=== PATIENT | female | born 1950 | race Caucasian/White ===

== ENCOUNTER 2019-01-03 07:42 | Outpatient (CLI) | payer MEDICARE, OTHER ==
--- NOTE | 2019-01-03 11:09 | CARDIAC PROCEDURE NOTE ---
DATE OF SERVICE: 01/03/2019 Physician: Opal Stock MD, [facility] INDICATIONS: Chest pain, atypical. PROCEDURE: Exercise treadmill test. CARDIAC RISK FACTORS: Postmenopausal status, strong family history in many family members of cardiovascular disease. PROCEDURE: After signing informed consent, the patient performed exercise on a Julio Cesar protocol treadmill stress test. No imaging was ordered with this test. RESTING HEART RATE: 74. Peak heart rate: 130 (85% predicted maximum heart rate for age). RESTING BLOOD PRESSURE: 117/74. Peak blood pressure 141/80. The patient exercised for 4 minutes and 14 seconds on a Julio Cesar protocol treadmill stress test. She achieved a peak heart rate of 130 (85% PMHR) and 6.1 METS. The patient had no chest pain and no shortness of breath. Normal heart rate and blood pressure response to exercise. RESTING EKG: Normal sinus rhythm, lateral T-wave flattening, and minimal ST depression in lead II only. EKG AT PEAK: No new ischemic EKG changes. SUMMARY: 1. Abnormal resting EKG. 2. Good exercise tolerance and no symptoms of chest pain at an adequate achieved peak heart rate. 3. No new EKG changes; however, the baseline EKG has abnormal ST and T waves. 4. No imaging study was ordered with this test. cc: Liliana Gar PA-C TD: 01/03/2019 10:48 MTDD
== END 2019-01-03 07:43 | disposition home or self-care (01) ==
LOC: DI 07:42
PROVIDERS: ATTEND Physician Assistant
DX: R07.89 Other chest pain (principal); R94.31 Abnormal electrocardiogram [ECG] [EKG]; Z78.0 Asymptomatic menopausal state; Z82.49 Family history of ischemic heart disease and other diseases of the circulatory system
CPT/HCPCS: 93016; 93017; 93018

== ENCOUNTER 2019-05-25 08:14 | Outpatient (CLI) | payer MEDICARE, OTHER ==
--- NOTE | 2019-05-28 09:51 | CT Report ---
Reason: PULMONARY NODULE Procedure Date: 05/25/2019 Accession Number: [id number] / [id number] Procedure: CT - CHEST WO CPT Code: FULL RESULT: EXAM: CT CHEST EXAM DATE: 05/25/2019 08:37 AM. CLINICAL HISTORY: Pulmonary nodule. COMPARISONS: RIBS 2 VIEW RT 04/28/2018 8:30 AM. TECHNIQUE: Routine helical CT imaging was performed through the chest. IV contrast: None. Reconstructions: Coronal and sagittal. In accordance with CT protocol optimization, one or more of the following dose reduction techniques were utilized for this exam: automated exposure control, adjustment of mA and/or KV based on patient size, or use of iterative reconstructive technique. FINDINGS: Lungs/Pleura: Minimal bibasilar scar/atelectasis. No endobronchial obstruction. Right fissural nodule 5 mm, image 24, series 4. Peripheral subpleural right lower lobe nodule 4 mm, image 37, series 4. Subpleural nodular opacity left lower lobe 3 mm, image 33, series 4. No dense consolidation. No pleural effusions. Mediastinum: Visualized thyroid gland is unremarkable. Heart size normal. Trace pericardial effusion. Small hiatal hernia. Thoracic aorta is normal in caliber. Mild thoracic aorta calcified plaque. No enlarged mediastinal or hilar lymph nodes are identified. No axillary or inferior cervical adenopathy. Bones: Mild degenerative changes of the thoracic spine. No acute osseous abnormalities. Visualized Abdomen: Included portions of the liver, spleen, adrenals, pancreas and left kidney are normal. Nonobstructing 2 mm right renal calculus. Status post cholecystectomy. Included portions of the stomach and upper abdominal bowel are unremarkable. Other: None. IMPRESSION: 1. Bilateral lung nodules with the largest right fissural nodule measuring 5 mm. No other definitive nodules are identified. Please see recommendations below as for follow-up. 2. No thoracic adenopathy. 3. Mild thoracic aortic atherosclerosis. 4. Status post cholecystectomy. Recommend follow-up of the described nodule(s) according to the following guidelines: Fleischner Society Recommendations 2017 MacMahon et al. Radiology 2017 Solid Nodules-Low Risk Patients: <6 mm (single or multiple) - No routine follow-up* 6-8 mm (single) -CT at 6-12 months, then consider CT at 18-24 months 6-8mm (multiple) -CT at 3-6 months, then consider at CT 18-24 months >8 mm (single) -Consider CT, PET/CT, or tissue sampling at 3 months >8 mm (multiple) -CT at 3-6 months, then consider CT at 18-24 months Solid Nodules-High Risk Patients: <6 mm (single or multiple) -Optional CT at 12 months* 6-8 mm (single) -CT at 6-12 months, then CT at 18-24 months 6-8mm (multiple) -CT at 3-6 months, then CT at 18-24 months >8 mm (single) -Consider CT, PET/CT, or tissue sampling at 3 months >8 mm (multiple) -CT at 3-6 months, then at 18-24 months *Nodules < 6mm do not require routine follow-up, but suspicious nodule morphology, upper lobe location, or both may warrant 12 month follow-up Subsolid nodules: <6 mm (single, GG or part solid) -No routine follow-up >=6 mm (single GG) -CT at 6-12 months to confirm, then CT q2 years until 5 years >=6 mm (single part solid) -CT at 3-6 months to confirm, if unchanged and solid <6mm, annual CT for 5 years <6 mm (multiple GG or part solid) -CT at 3-6 months. If stable, consider CT at 2 and 4 years >=6 mm (multiple GG or part solid) -CT at 3-6 months. Subsequent management based on most suspicious nodule(s). Consider follow-up at 2 and 4 years for certain suspicious nodules <6mm. If solid component develops or growth, consider resection. RADIA
== END 2019-05-25 08:15 | disposition home or self-care (01) ==
LOC: DI 08:14
PROVIDERS: ATTEND Physician Assistant Medical
DX: R91.8 Other nonspecific abnormal finding of lung field (principal); I70.0 Atherosclerosis of aorta; Z90.49 Acquired absence of other specified parts of digestive tract
CPT/HCPCS: 71250

== ENCOUNTER 2019-06-04 08:41 | Outpatient (CLI) | payer MEDICARE, OTHER ==
--- NOTE | 2019-06-04 13:07 | Ultrasound Report ---
Reason: VERTIGO Procedure Date: 06/04/2019 Accession Number: [id number] / [id number] Procedure: US - Carotid Doppler Complete CPT Code: FULL RESULT: EXAM: BILATERAL CAROTID AND VERTEBRAL ARTERY DUPLEX DOPPLER ULTRASOUND: EXAM DATE: 06/04/2019 10:20 AM CLINICAL HISTORY: Vertigo. COMPARISON: None. TECHNIQUE: Grayscale imaging, color Doppler, and duplex spectral Doppler were used to evaluate the carotid and vertebral arteries bilaterally. Static images were obtained. FINDINGS: No significant plaque is identified in the right or left common or internal carotid arteries. Normal antegrade flow is present in bilateral vertebral arteries. VELOCITIES (cm/sec): Right CCA mid: PSV 91 cm/sec CCA dist: PSV 63 cm/sec ICA prox: PSV 52 cm/sec, EDV 19 cm/sec ICA mid: PSV 76 cm/sec, EDV 37 cm/sec ICA dist: PSV 97 cm/sec, EDV 44 cm/sec ECA: PSV 48 cm/sec Vert: PSV 72 cm/sec ICA/CCA: 1.0 Left CCA mid: PSV 71 cm/sec CCA dist: PSV 72 cm/sec ICA prox: PSV 44 cm/sec, EDV 18 cm/sec ICA mid: PSV 80 cm/sec, EDV 34 cm/sec ICA dist: PSV 83 cm/sec, EDV 34 cm/sec ECA: PSV 40 cm/sec Vert: PSV 39 cm/sec ICA/CCA: 1.1 ICA diameter stenosis: Right: <50% by velocity and <70% by NASCET criteria. Left: <50% by velocity and <70% by NASCET criteria. IMPRESSION: 1. No significant bilateral carotid artery plaquing. 2. In the right carotid artery there are no elevated carotid artery velocities to suggest hemodynamically significant stenosis. 3. In the left carotid artery there are no elevated carotid artery velocities to suggest hemodynamically significant stenosis. 4. Normal antegrade flow is present in bilateral vertebral arteries. General Recommendations: Stenosis =50% ICA - Follow-up ultrasound 6-12 months Stenosis <50% ICA - High Risk Patient with plaque - Follow-up ultrasound 1-2 years Normal Study but High Risk Patient - Follow-up ultrasound 3-5 years Management recommendations and diagnostic criteria are based on current IAC endorsed standards in Carotid Artery Stenosis: Grayscale and Doppler Ultrasound Diagnosis. Validated velocity measurements with angiographic measurements and velocity criteria are extrapolated from diameter data as defined by the Society of Radiologists in Ultrasound Consensus Conference Radiology 2003; 229;340-346. RADIA
== END 2019-06-04 08:42 | disposition home or self-care (01) ==
LOC: DI 08:41
PROVIDERS: ATTEND Physician Assistant Medical
DX: R42 Dizziness and giddiness (principal)
CPT/HCPCS: 93880

== ENCOUNTER 2019-07-24 18:16 | Outpatient (CLI) | payer MEDICARE, OTHER | END 2019-07-24 18:17 | disposition EMS.NT | LOC: EMS 18:16 | PROVIDERS: ATTEND Surgery | DX: R10.9 Unspecified abdominal pain (principal); R11.2 Nausea with vomiting, unspecified ==

== ENCOUNTER 2021-02-11 09:06 | Emergency (ER) | payer MEDICARE, OTHER ==
[2021-02-11] MEDS ORDERED: ASPIRIN CHEW 81 MG TABLET PO STA (09:27)
--- OUTSIDE RECORDS SUMMARY | 2021-02-11 09:28 | EXTERNAL MEDICAL SUMMARY RPT | Continuity of Care Document ---
:1950 Demographics Phone Unavailable Preferred Language Unknown Marital Status Unknown Cheondoism Affiliation Unknown Race Unknown Ethnic Group Unknown Author Organization [facility] Address [address] [id number] Phone Allergies Encounters Medications Problems Results
--- NOTE | 2021-02-11 09:29 | ED Physician Documentation ---
PD HPI CHEST PAIN - Stated complaint Stated Complaint: CHEST PAINS - Chief complaint Chief Complaint: Cardiac - History obtained from History obtained from: Patient - Additional information Additional information: This is a very healthy 70-year-old woman with no hx of coronary disease who presents with constant mild right sided substernal chest pain that started when she woke up this morning at 6 AM. She went for her usual morning walk today which did not make it worse. She denies radiation. It is not worse with deep breathing. There is no associated shortness of breath, nausea, dizziness, s weats, pedal edema, calf pain. No recent travel. She had a negative Julio Cesar only stress test about 2 years ago. Review of Systems Ten Systems: 10 systems reviewed and negative Constitutional: denies: Fever, Chills Cardiac: denies: Palpitations, Pedal edema, Calf pain Respiratory: denies: Dyspnea, Cough, Hemoptysis, Wheezing PD PAST MEDICAL HISTORY - Past Medical History Past Medical History: Yes Cardiovascular: High cholesterol Respiratory: None Neuro: None Endocrine/Autoimmune: None GI: GERD [employer]: None : None HEENT: None Psych: Depression Musculoskeletal: Osteoarthritis, Osteoporosis Derm: None - Past Surgical History Past Surgical History: No General: Cholecystectomy - Present Medications Home Medications: Ambulatory Orders Medication Instructions Recorded Confirmed Amoxicillin 500 mg PO TID 02/11/21 02/11/21 - Allergies Allergies/Adverse Reactions: Allergies Allergy/AdvReac Type Severity Reaction Status Date / Time No Known Drug Allergies Allergy Verified 02/11/21 09:10 - Social History Does the pt smoke?: No Smoking Status: Never smoker Does the pt drink ETOH?: No Does the pt have substance abuse?: No - Immunizations Immunizations are current?: Yes - POLST Patient has POLST: No PD ED PE NORMAL - Vitals Vital signs reviewed: Yes - General General: Alert and oriented X 3, No acute distress - HEENT HEENT: PERRL, EOMI - Neck Neck: Supple, no meningeal sign, No bony TTP - Cardiac Cardiac: RRR, No murmur, Other (Chest pain is reproducible with palpation of the right upper chest wall anteriorly) - Respiratory Respiratory: No respiratory distress, Clear bilaterally - Abdomen Abdomen: Soft, Non tender - Back Back: No CVA TTP, No spinal TTP - Derm Derm: Normal color, Warm and dry - Extremities Extremities: No edema, No calf tenderness / cord - Neuro Neuro: Alert and oriented X 3, Normal speech Results - Vitals Vitals: Vital Signs - 24 hr 02/11/21 02/11/21 09:11 10:59 Temperature 36.8 C Heart Rate 79 70 Respiratory 16 20 Rate Blood Pressure 149/87 H 124/74 O2 Saturation 99 100 Oxygen O2 Source Room air - EKG (time done) 0912 Rate: Rate (enter#) (72) Rhythm: NSR [place]: Normal Intervals: Normal ND QRS: LVH Ischemia: Non specific changes (There is anterior T wave inversion and flat T waves inferiorly. No change from July 2013) Computer interpretation: Agree with computer - Labs Labs: Laboratory Tests 02/11/21 02/11/21 02/11/21 09:39 09:39 09:39 WBC 4.5 L RBC 4.77 Hgb 14.2 Hct 42.4 MCV 88.9 MCH 29.8 MCHC 33.5 RDW 12.1 Plt Count 213 MPV 10.7 Neut # (Auto) 2.4 Lymph # (Auto) 1.2 L [place] # (Auto) 0.5 Eos # (Auto) 0.4 Baso # (Auto) 0.1 Absolute Nucleated RBC 0.00 Nucleated RBC % 0.0 Sodium 138 Potassium 3.5 Chloride 104 Carbon Dioxide 24 Anion Gap 10.0 BUN 16 Creatinine 0.6 Estimated GFR (MDRD) 99 Glucose 126 H Calcium 9.1 Total Bilirubin 0.7 AST 26 ALT 26 Alkaline Phosphatase 53 Troponin I High Sens < 2.3 L Total Protein 7.8 Albumin 4.5 Globulin 3.3 Albumin/Globulin Ratio 1.4 Lipase 31 02/11/21 11:40 WBC RBC Hgb Hct MCV MCH MCHC RDW Plt Count MPV Neut # (Auto) Lymph # (Auto) [place] # (Auto) Eos # (Auto) Baso # (Auto) Absolute Nucleated RBC Nucleated RBC % Sodium Potassium Chloride Carbon Dioxide Anion Gap BUN Creatinine Estimated GFR (MDRD) Glucose Calcium Total Bilirubin AST ALT Alkaline Phosphatase Troponin I High Sens < 2.3 L Total Protein Albumin Globulin Albumin/Globulin Ratio Lipase PD MEDICAL DECISION MAKING - ED course Complexity details: reviewed old records ED course: 70-year-old woman with reproducible chest pain. EKGs unchanged from prior. Serial troponins done in the department and negative. Departure - Departure Disposition: 01 Home, Self Care Clinical Impression: Chest wall pain Condition: Good Record reviewed to determine appropriate education?: Yes Instructions: ED Chest Pain Atypical Unkn Cause Comments: Follow-up with your doctor, next available appointment. Discuss repeat stress testing, return for new or worsening symptoms or if symptoms progress or become worse with exertion.
[2021-02-11 09:45] LABS: BASOPHILS # (AUTO) 0.1 10^3/uL (0.0-0.1); BASOPHILS % (AUTO) 1.1 %; EOSINOPHILS # (AUTO) 0.4 10^3/uL (0.0-0.7); EOSINOPHILS % (AUTO) 8.6 %; HCT - HEMATOCRIT 42.4 % (37.0-47.0); HGB - HEMOGLOBIN 14.2 g/dL (12.0-16.0); LYMPHOCYTES # (AUTO) 1.2 10^3/uL (1.5-3.5); LYMPHOCYTES % (AUTO) 26.9 %; MEAN CORPUSCULAR HEMOGLOBIN 29.8 pg (27.0-31.0); MEAN CORPUSCULAR HGB CONC 33.5 g/dL (32.0-36.0); MEAN CORPUSCULAR VOLUME 88.9 fL (81.0-99.0); MEAN PLATELET VOLUME 10.7 fL (7.9-10.8); MONOCYTES # (AUTO) 0.5 10^3/uL (0.0-1.0); NEUTROPHILS # (AUTO) 2.4 10^3/uL (1.5-6.6); NEUTROPHILS % (AUTO) 52.2 %; PLT - PLATELET COUNT 213 10^3/uL (130-450); RED BLOOD COUNT 4.77 10^6/uL (4.20-5.40); RED CELL DISTRIBUTION WIDTH 12.1 % (12.0-15.0); WHITE BLOOD COUNT 4.5 x10^3/uL (4.8-10.8)
[2021-02-11 10:01] LABS: ALBUMIN 4.5 g/dL (3.2-5.5); ALBUMIN/GLOBULIN RATIO 1.4 (1.0-2.2); BILIRUBIN,TOTAL 0.7 mg/dL (0.2-1.0); CALCIUM 9.1 mg/dL (8.5-10.3); CREATININE 0.6 mg/dL (0.4-1.0); POTASSIUM 3.5 mmol/L (3.5-5.0); TOTAL PROTEIN 7.8 g/dL (6.7-8.2)
--- NOTE | 2021-02-11 10:09 | XRAY Report ---
PROCEDURE: Chest 1 View X-Ray INDICATIONS: Chest Pain TECHNIQUE: One view of the chest was acquired. COMPARISON: None. FINDINGS: Surgical changes and devices: None. Lungs and pleura: No pleural effusions or pneumothorax. Lungs are clear. Mediastinum: Mediastinal contours appear normal. Heart size is normal. Bones and chest wall: No suspicious bony lesions. Overlying soft tissues appear unremarkable. IMPRESSION: No acute disease. Reviewed by: Hector Wilkins MD on 02/11/2021 10:08 AM PDT Approved by: Hector Wilkins MD on 02/11/2021 10:08 AM PDT Station ID: [id number]
[2021-02-11 12:23] VITALS: BP 120/82
== END 2021-02-11 12:23 | disposition home or self-care (01) ==
LOC: ED 09:06
DX: R07.89 Other chest pain (principal)
CPT/HCPCS: 36415; 71045; 80053; 83690; 84484; 85025; 93005; 99284; A9270

== ENCOUNTER 2023-07-27 08:00 | Outpatient (CLI) | payer MEDICARE, OTHER | END 2023-07-27 23:59 | disposition home or self-care (01) | LOC: LAB.WCP 08:00 | PROVIDERS: ATTEND Physician Assistant Medical | DX: L01.00 Impetigo, unspecified (principal) | CPT/HCPCS: 87070; 87205 ==